=== PATIENT | female | born 1960 | race Caucasian/White ===

== ENCOUNTER 2018-08-14 13:14 | Emergency (ER) | payer BC ==
[2018-08-14 13:59] LABS: PLATELET COUNT 245 10^3/uL (150-400)
--- NOTE | 2018-08-14 14:29 | EDPHY ---
H & P Stated Complaint: cp x 24 hrs Time Seen by Provider: 08/14/18 13:35 HPI/ROS: CHIEF COMPLAINT: Chest pain HISTORY OF PRESENT ILLNESS: 58-year-old female presents with chest pain. Onset of a mild chest discomfort yesterday while sitting at work. The chest discomfort is described as tightness and is mild, 2/10. Discomfort increases with deep inspiration and with movement. The chest pain has persisted today, without new symptoms. Ongoing mild cough for several weeks. No change with exertion. No fever, shortness of breath or dizziness. Cardiac risk factors negative. Nonsmoker; no family history; no hypertension, diabetes or hypercholesterolemia. REVIEW OF SYSTEMS: complete 10 point ROS reviewed and is negative except for the noted elements in the HPI - Personal History Current Tetanus Diphtheria and Acellular Pertussis (TDAP): Yes - Medical/Surgical History Hx Asthma: No Hx Chronic Respiratory Disease: No Hx Diabetes: No Hx Cardiac Disease: No Hx Renal Disease: No Hx Cirrhosis: No Hx Alcoholism: No Hx HIV/AIDS: No Hx Splenectomy or Spleen Trauma: No Other PMH: denies - Social History Smoking Status: Never smoked Alcohol Use: Sober Drug Use: None - Physical Exam Exam: General Appearance: Alert, pleasant Eyes: Pupils equal and round, no conjunctival pallor or injection ENT, Mouth: Mucous membranes moist Neck: Normal inspection Respiratory: Normal inspection, point tenderness left anterior chest at the costochondral junction, Lungs are clear to auscultation Cardiovascular: Regular rate and rhythm Gastrointestinal: Abdomen is soft and nontender Neurological: A&O, nonfocal, normal gait Skin: Warm and dry, no rash Extremities: Nontender, no pedal edema Psychiatric: Mood and affect normal Constitutional: Initial Vital Signs Temperature (C) 37.1 C 08/14/18 13:18 Heart Rate 81 08/14/18 13:18 Respiratory Rate 17 08/14/18 13:18 Blood Pressure 128/82 H 08/14/18 13:18 O2 Sat (%) 95 08/14/18 13:18 O2 Delivery Mode Room Air Allergies/Adverse Reactions: Penicillins Allergy (Verified 08/14/18 13:18) Home Medications: Medication Instructions Recorded NK [No Known Home Meds] 08/14/18 Medical Decision Making - Diagnostics EKG Interpretation: EKG interpreted by me reveals normal sinus rhythm, rate 76, poor R-wave progression, T-wave flattening in the anterior leads. Interpretation: Abnormal EKG Imaging Results: Imaging Impressions Chest X-Ray 08/14/18 13:35 Impression: No acute pulmonary disease. Imaging: I viewed and interpreted images myself ED Course/Re-evaluation: This patient presents with atypical and prolonged chest pain. After careful consideration and evaluation, I find no evidence of acute coronary syndrome. The patient has no risk factors for coronary disease, normal EKG and normal studies. Heart score is 0. I do not feel that additional ED testing is indicated. In addition, I feel that I can safely exclude pulmonary embolism, with normal vital signs, normal oxygen saturation and normal studies. PERC score 1; age greater than 50, normal physical exam, no prior thromboembolism, no recent surgery, no estrogen use. In addition there is no evidence of pneumothorax, pneumonia, aortic dissection. Differential Diagnosis: Differential diagnosis includes though it is not limited to pneumonia, pneumothorax, pulmonary embolism, aortic dissection, pericarditis, acute coronary syndrome. - Data Points Laboratory Results: Laboratory Results 08/14/18 13:45 08/14/18 13:45 08/14/18 08/14/18 08/14/18 14:37 13:45 13:45 WBC RBC Hgb Hct MCV MCH MCHC RDW Plt Count MPV Neut % (Auto) Lymph % (Auto) [place] % (Auto) Eos % (Auto) Baso % (Auto) Nucleat RBC Rel Count Absolute Neuts (auto) Absolute Lymphs (auto) Absolute Monos (auto) Absolute Eos (auto) Absolute Basos (auto) Absolute Nucleated RBC Immature Gran % Immature Gran # D-Dimer < 0.27 ug/mLFEU ug/mLFEU (0.00-0.50) Sodium 141 mEq/L mEq/L (135-145) Potassium 4.0 mEq/L mEq/L (3.3-5.0) Chloride 106 mEq/L mEq/L (97-110) Carbon Dioxide 26 mEq/l mEq/l (22-31) Anion Gap 9 mEq/L mEq/L (6-14) BUN 19 mg/dL mg/dL (7-23) Creatinine 0.5 mg/dL L mg/dL (0.6-1.0) Estimated GFR > 60 Glucose 92 mg/dL mg/dL (70-100) Calcium 10.0 mg/dL mg/dL (8.5-10.4) POC Troponin I 0.00 ng/mL ng/mL (0.00-0.08) NT-Pro-B Natriuret Pep 20 pg/mL pg/mL (0-125) 08/14/18 13:45 WBC 5.06 10^3/uL 10^3/uL (3.80-9.50) RBC 4.58 10^6/uL 10^6/uL (4.18-5.33) Hgb 14.5 g/dL g/dL (12.6-16.3) Hct 41.8 % % (38.0-47.0) MCV 91.3 fL fL (81.5-99.8) MCH 31.7 pg pg (27.9-34.1) MCHC 34.7 g/dL g/dL (32.4-36.7) RDW 12.6 % % (11.5-15.2) Plt Count 245 10^3/uL 10^3/uL (150-400) MPV 10.0 fL fL (8.7-11.7) Neut % (Auto) 48.4 % % (39.3-74.2) Lymph % (Auto) 43.7 % % (15.0-45.0) [place] % (Auto) 5.9 % % (4.5-13.0) Eos % (Auto) 1.0 % % (0.6-7.6) Baso % (Auto) 0.8 % % (0.3-1.7) Nucleat RBC Rel Count 0.0 % % (0.0-0.2) Absolute Neuts (auto) 2.45 10^3/uL 10^3/uL (1.70-6.50) Absolute Lymphs (auto) 2.21 10^3/uL 10^3/uL (1.00-3.00) Absolute Monos (auto) 0.30 10^3/uL 10^3/uL (0.30-0.80) Absolute Eos (auto) 0.05 10^3/uL 10^3/uL (0.03-0.40) Absolute Basos (auto) 0.04 10^3/uL 10^3/uL (0.02-0.10) Absolute Nucleated RBC 0.00 10^3/uL 10^3/uL (0-0.01) Immature Gran % 0.2 % % (0.0-1.1) Immature Gran # 0.01 10^3/uL 10^3/uL (0.00-0.10) D-Dimer Sodium Potassium Chloride Carbon Dioxide Anion Gap BUN Creatinine Estimated GFR Glucose Calcium POC Troponin I NT-Pro-B Natriuret Pep Point of Care Test Results: Chemistry 08/14/18 14:37 POC Troponin I 0.00 ng/mL ng/mL (0.00-0.08) Departure - Departure Disposition: Home, Routine, Self-Care Clinical Impression: Chest pain Qualifiers: Chest pain type: intercostal pain Qualified Code(s): R07.82 - Intercostal pain Condition: Good Instructions: Chest Pain (ED) Additional Instructions: Your blood tests, EKG and chest x-ray are unremarkable today. Referrals: Fely Logan MD [Primary Care Provider] - As per Instructions Jose Dumont MD [Medical Doctor] - As per Instructions (Call to make an appointment. )
[2018-08-14 15:01] VITALS: BP 126/75
--- NOTE | 2018-08-16 16:50 | CPEKG ---
Test Reason : OPEN Blood Pressure : / mmHG Vent. Rate : 076 BPM Atrial Rate : 076 BPM P-R Int : 156 ms QRS Dur : 086 ms QT Int : 423 ms P-R-T Axes : 064 034 019 degrees QTc Int : 476 ms Sinus rhythm Probable left atrial enlargement Consider Anteroseptal infarct, age indeterminate Confirmed by Alejo Bailey ([id number]) on 08/16/2018 4:49:48 PM Referred By: Confirmed By:Alejo Bailey
== END 2018-08-14 15:01 | disposition home or self-care (01) ==
DX: R07.82 Intercostal pain (principal)
CPT/HCPCS: 84484-PO